=== PATIENT | male | born 1960 | race Caucasian/White ===

== ENCOUNTER 2022-12-22 06:05 | Day surgery (SDC) | payer OTHER ==
[~2022-12-22] VITALS: Ht 152.4 cm; Wt 63.5 kg
[2022-12-22] MEDS ORDERED: fentaNYL citrate 0.05 MG/ML VIAL ONE (08:46)
[2022-12-22] MEDS ORDERED: LIDOCAINE 2% 100 MG/5 ML UJET TP ONE (08:46)
[2022-12-22] MEDS ORDERED: SIMETHICONE 40 MG/0.6 ML ONE (08:54)
[2022-12-22] MEDS ORDERED: fentaNYL citrate 0.05 MG/ML VIAL IVP ONE (09:45)
== END 2022-12-22 09:45 | disposition home or self-care (01) ==
LOC: MDS 06:05 → MMU 06:11 → MDS 09:45
PROVIDERS: ATTEND Internal Medicine Gastroenterology
DX: Z12.11 Encounter for screening for malignant neoplasm of colon (principal); K57.30 Diverticulosis of large intestine without perforation or abscess without bleeding; E78.5 Hyperlipidemia, unspecified; Z98.890 Other specified postprocedural states
CPT/HCPCS: 45378; J3010